=== PATIENT | male | born 1965 | race Caucasian/White ===

== ENCOUNTER 2021-01-25 13:07 | Emergency (ER) | payer OTHER ==
[2021-01-25 14:14] LABS: Red Blood Cell (RBC) Count 4.36 10x6/uL (4.32-5.72); White Blood Cell (WBC) Count 8.3 10x3/uL (3.5-10.5)
[2021-01-25 14:15] LABS: #Eosinphils 0.1 10x3/uL (0.0-0.5); #Monocytes 0.7 10x3/uL (0.0-1.1); %Basophils 0.2 % (0.0-2.0); %Eosinophils 1.7 % (0.0-6.0); %Lymphocytes 16.7 % (18.0-47.0); %Monocytes 8.8 % (0.0-10.0); %Neutrophils 72.4 % (40.0-75.0); Hemoglobin 13.5 g/dL (13.5-17.5); Mean Corpuscular HGB CONC 33.6 g/dL (32.0-36.0); Mean Corpuscular Volume 92.2 fl (81.2-95.1); Mean Platelet Volume 9.1 fl (7.4-10.4); Platelet Count 217 10x3/uL (150-450); RBC Distribution Width 12.5 % (11.5-14.5)
[2021-01-25 14:32] LABS: ALT (SGPT) 11 U/L (8-55); AST (SGOT) 14 U/L (5-34); Alkaline Phosphatase 51 U/L (40-110); Anion Gap 13 mmol/L (10-20); BUN (Urea Nitrogen) 11 mg/dL (8.4-25.7); Bilirubin, Total 1.8 mg/dL (0.2-1.2); Calc. Creatinine Clearance 0 mL/min (70-130); Calcium 8.6 mg/dL (7.8-10.44); Carbon Dioxide 21 mmol/L (22-29); Chloride 111 mmol/L (98-107); Globulin 2.2 g/dL (2.4-3.5); Glucose 101 mg/dL (70-105); Lipase 6 U/L (8-78); Protein, Total 6.2 g/dL (6.0-8.3); Sodium 142 mmol/L (136-145)
[2021-01-25 14:38] LABS: Potassium 2.9 mmol/L (3.5-5.1)
[2021-01-25 15:23] LABS: Magnesium 2.1 mg/dL (1.6-2.6)
[2021-01-25] MEDS ORDERED: Potassium Chloride 20 MEQ TAB ONE (15:41)
[2021-01-25] MEDS ORDERED: NS 0.9% w/ 20 MEQ KCL 1,000 ML ONE (15:42)
[2021-01-25] MEDS ORDERED: Magnesium 2 GM/50 ML BAG (IN WATER) ONE (15:42)
[2021-01-25] MEDS ORDERED: Morphine 4 MG/ML VIAL ONE (16:10)
[2021-01-25] MEDS ORDERED: Fleet Enema 133 ML BOT PR SCH (17:00)
[2021-01-25] MEDS ORDERED: Mineral Oil ENEMA PR SCH (17:00)
[2021-01-25] MEDS ORDERED: Lidocaine/Transparent Dressing 1 EACH KIT ONE (18:46)
[2021-01-25] MEDS ORDERED: Lidocaine 1% (PF) 30 ML VIAL ONE (18:52)
[2021-01-25] MEDS ORDERED: Lidocaine Viscous Sol 2% 15 ml UD Cup ONE (19:27)
[2021-01-25] MEDS ORDERED: Ketamine 50 MG/ML (10ML VIAL) ONE (19:34)
[2021-01-25] MEDS ORDERED: PROPOFOL 20 ML ONE ×2 (20:13→21:04)
== END 2021-01-25 22:37 | disposition home or self-care (01) ==
LOC: CSHERS 13:07
DX: K56.41 Fecal impaction (principal); E87.6 Hypokalemia
CPT/HCPCS: 36415; 74177; 80053; 83605; 83690; 83735; 85025; 96365; 96366; 96368; 96375; 99152; 99153; J2001; J2270; J2704; J3475; J3480